=== PATIENT | male | born 1985 | race Two or more races ===

== ENCOUNTER 2021-08-15 19:21 | Emergency (ER) | payer SELFPAY | END 2021-08-15 21:43 | disposition home or self-care (01) | LOC: MW.ED 19:21 | DX: S29.9XXA Unspecified injury of thorax, initial encounter (principal); S89.92XA Unspecified injury of left lower leg, initial encounter; W01.0XXA Fall on same level from slipping, tripping and stumbling without subsequent striking against object, initial encounter | CPT/HCPCS: 71046; 71046-26; 73590-26-LT; 73590-LT; 99283-25 ==